=== PATIENT | male | born 1970 | race Caucasian/White ===

== ENCOUNTER 2019-01-11 06:15 | Inpatient (IN) ==
--- NOTE | 2019-01-05 10:35 | PAT Medication Instructions ---
Medication Instructions Date of Service January 05, 2019 Home Medications amlodipine 10 mg PO QPM aspirin [Aspir-81] 81 mg PO QPM cholecalciferol (vitamin D3) 2,000 unit PO QPM fexofenadine [Naila Allergy] 180 mg PO DAILY NEEDED lisinopril 20 mg PO QPM multivitamin 1 tab PO QPM simvastatin 20 mg PO PM DO NOT take the morning of surgery fexofenadine [Naila Allergy] 180 mg PO DAILY NEEDED Take morning of surgery NOTHING TO EAT OR DRINK AFTER MIDNIGHT Take evening before surgery amlodipine 10 mg PO QPM aspirin [Aspir-81] 81 mg PO QPM cholecalciferol (vitamin D3) 2,000 unit PO QPM lisinopril 20 mg PO QPM multivitamin 1 tab PO QPM simvastatin 20 mg PO PM Other Notes If you have any questions please call us at [phone] or [phone] or [phone] or [phone]
--- NOTE | 2019-01-05 12:55 | Anesthesiology Consultation ---
Date of Service January 05, 2019 Assessment & Plan (1) Encounter for pre-operative examination: Chart Review Chart Review: Acceptable Risk for Surgery and Patient seen in Pre Admission Testing Consults Requested medical (Dr. Kevin (01/07)) Patient was seen by PCPs office on 01/07. Per note, "he is deemed an acceptable risk for the planned surgery." Teaching & Discussion Pre-Anesthesia Teaching/Discussion Notes: Instructed NPO after midnight before surgery, except medications with 15 cc of water. Medication instructions provided according to the PAT guidelines. History Surgery Operation Date: 01/11/19 08:55 Proposed Procedures p Left Total Knee Arthroplasty - Taj Klein DO Height/Weight Height: 6 ft Weight: 118.7 kg Allergies Allergy/AdvReac Type Severity Reaction Status Date / Time acetaminophen [From Tylenol] Allergy Unknown THROAT Verified 01/03/19 10:30 SWELLS UP Medications Home Medications Medication Instructions Recorded Confirmed Last Taken amlodipine 10 mg PO QPM 01/03/19 01/03/19 Unknown aspirin [Aspir-81] 81 mg PO QPM 01/03/19 01/03/19 Unknown cholecalciferol (vitamin D3) 2,000 unit PO QPM 01/03/19 01/03/19 Unknown [Vitamin D3] fexofenadine [Naila Allergy] 180 mg PO DAILY PRN 01/03/19 01/03/19 Unknown lisinopril 20 mg PO QPM 01/03/19 01/03/19 Unknown multivitamin 1 tab PO QPM 01/03/19 01/03/19 Unknown simvastatin 20 mg PO PM 01/03/19 01/03/19 Unknown Past Medical History Medical History Factor 5 Leiden mutation, heterozygous F/U PCP Hyperlipidemia Hypertension Osteoarthritis Sleep apnea CPAP Past Family History Family History Mother Family history of diabetes mellitus Past Surgical History Surgical History History of arthroscopy R/L KNEES. Left knee in 2014 History of arthroscopy of left shoulder x1 History of arthroscopy of right shoulder x2 Past Anesthesia History No Hx of Anesthesia Complications and No Family Hx of Anesthesia Complications History of PONV No Motion Sickness Screening History of Motion Sickness: Yes (Only if he reads) Social History Smoking Status: Never smoker Do You Dip or Chew Tobacco: No (QUIT 5-6 YRS AGO) Hx Alcohol Use: Yes Alcohol type: beer and wine alcohol intake frequency: a few times a week Hx Substance Use: No substance use type: does not use Exercise / Class Metabolic Activity II 4-5 Yardwork/Stairs/Walk up hill (Limited currently due to knee pain. Able to climb a FOS. Denies CP or SOB. ) Review of Systems Patient denies chest pain, shortness of breath, dyspnea on exertion, reflux, cough, wheezing, palpitations. +joint pain (both knees) Physical Exam Vital Signs BP: 126/74 P: 82 R: 18 T: 97.8 SPO2: 97% on RA ENMT Thyromental Distance: < 3.5 Finger Breadths (3) Mallampati Class: II Neck normal visual inspection, trachea midline and + facial hair (Advised); neck extension not limited Respiratory normal respiratory effort Auscultation: lungs clear to auscultation bilaterally Cardiovascular Rate/Rhythm: regular rate and regular rhythm Heart Sounds: no murmur Vessels: no carotid bruit Neurologic moves all extremities Psychiatric Orientation: alert and oriented x 3 Testing Electrocardiogram Date: 01/05/19 Findings: + NSR @ (74) Chest X-Ray Date: 01/05/19 Findings: + NAD Echocardiogram Date: 12/25/17 EF: 60% LV Function: normal RWMA: + none Valvular Disease: + no significant valvular disease Laboratory Results 01/05/19 13:13 01/05/19 13:13 Blood Type A Positive 01/05/19 13:13 Antibody Screen NEGATIVE 01/05/19 13:13 PT 10.5 Seconds (9.0-12.0) 01/05/19 13:13 INR 1.0 (0.9-1.1) 01/05/19 13:13 APTT 25.4 Seconds (21.0-31.0) 01/05/19 13:13 Hemoglobin A1c 5.3 % (4.5-5.6) 01/05/19 13:13 Urine Color Yellow 01/05/19 Unknown Urine Appearance Clear (Clear) 01/05/19 Unknown Urine pH 5.5 (4.5-7.5) 01/05/19 Unknown Ur Specific [place] 1.008 (1.000-1.030) 01/05/19 Unknown Urine Protein Negative (Negative) 01/05/19 Unknown Urine Glucose (UA) Negative (Negative) 01/05/19 Unknown Urine Ketones Negative (Negative) 01/05/19 Unknown Urine Nitrite Negative (Negative) 01/05/19 Unknown Ur Leukocyte Esterase Negative (Negative) 01/05/19 Unknown 01/05/19 Unknown Urine Culture - Final Urine,Clean Catch No growth - less than 1,000 colonies/mL.
--- NOTE | 2019-01-05 13:39 | XRay Report ---
XR chest Pre-admission PA/Lat CLINICAL HISTORY: pat preoperative evaluation COMPARISON STUDY: No previous studies for comparison. FINDINGS: The bones soft tissues and hemidiaphragms are normal. The cardiomediastinal silhouette is n ormal. The lungs are clear. The pulmonary vasculature is normal. IMPRESSION: Negative chest. The above report was generated using voice recognition software. It may contain grammatical, syntax or spelling errors. Electronically signed by: Mike Smith M.D. 01/05/2019 1:38 PM
--- NOTE | 2019-01-05 13:52 | History & Physical Report ---
Date of Service January 05, 2019 Date of Surgery: 01-11-19 Assessment & Plan (1) Primary osteoarthritis of left knee: Patient has continued pain in his left knee despite previous visco injections as well as cortisone injections. He underwent left knee arthroscopy, partial menisectomy and chondroplasty in 2014. he has since failed conservative measures, xrays showing advancing DJD of his medial compartment and patellofemoral joint. Risks and benefits of procedure discussed in detail today , patient would like to proceed with a left total knee replacement @ [facility] as scheduled. will obtain medical clearance prior to surgery as well as obtain PATs at [facility]. Will place on ASA 81mg po bid x 1 month post op, f/u 2 weeks post op for routine post-operative care and xray, sooner if having any problems. will make arrangements for HHPT at the time of discharge. History of Present Illness Chief Complaint: left knee pain Primary Care Provider: Krista Kevin DO Mr Howard is a 48 year old male who is here for a follow up of knee pain, presents for pre-op evaluation prior to left total knee replacement at [facility] on . He states that the symptoms have been chronic non-traumatic. The symptoms occur constantly with intermittent worsening. Currently the patient states that the symptoms are moderate in severity. The pain is described as aching and discomforting. The symptoms occur continuously. He states the pain now affects his ADLs including walking, standing and using stairs. He has tried and failed conservative measures including previous cortisone, visco injection, PT, previous knee arthroscopy as well as has used a brace in the past. currently pain 4/10, worst is 8/10. Allergies Allergy/AdvReac Type Severity Reaction Status Date / Time acetaminophen [From Tylenol] Allergy Unknown THROAT Verified 01/03/19 10:30 SWELLS UP Home Medications Home Medications Medication Instructions Recorded Confirmed Type amlodipine 10 mg PO QPM 01/03/19 01/03/19 History aspirin [Aspir-81] 81 mg PO QPM 01/03/19 01/03/19 History cholecalciferol (vitamin D3) 2,000 unit PO QPM 01/03/19 01/03/19 History [Vitamin D3] fexofenadine [Naila Allergy] 180 mg PO DAILY PRN 01/03/19 01/03/19 History lisinopril 20 mg PO QPM 01/03/19 01/03/19 History multivitamin 1 tab PO QPM 01/03/19 01/03/19 History simvastatin 20 mg PO PM 01/03/19 01/03/19 History Past Med/Surg History Medical History Factor 5 Leiden mutation, heterozygous F/U PCP Hyperlipidemia Hypertension Osteoarthritis Sleep apnea CPAP Surgical History History of arthroscopy R/L KNEES. Left knee in 2014 History of arthroscopy of left shoulder x1 History of arthroscopy of right shoulder x2 Family History Mother Family history of diabetes mellitus Social History Current Living Situation: Spouse Other Information That Helps Us Care for You: No Feels Safe at Home: Yes Safety Concerns: Feels Safe At This Time Smoking Status: Never smoker Do You Dip or Chew Tobacco: No (QUIT 5-6 YRS AGO) Hx Alcohol Use: Yes Alcohol type: beer and wine Alcohol Intake Frequency: a few times a week Hx Substance Use: No Beliefs That Will Affect Care: None Preferred Language: Czech Communication Ability: Effective 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 Review of Systems All systems reviewed & are unremarkable except as noted in HPI & below Constitutional: no fever, no chills, no sweats and no body aches Eyes: no blind spots and no diplopia Respiratory: no cough, no dyspnea and no dyspnea on exertion Cardiovascular: no chest pain, no dyspnea, no orthopnea and no lightheadedness Gastrointestinal: no nausea and no vomiting Musculoskeletal: as per Subjective / HPI Integumentary: no rash and no lesions Physical Exam 2 Vital Signs (Past 24 Hours): Ht: 6 Ft Wt: 118.7 kg BP: 140/88 Pulse: 82 Resp: 18 Constitutional: WD/WN, vitals as above + well hydrated; no acute distress Respiratory: normal respiratory effort, lungs clear to auscultation no respiratory distress and does not use accessory muscles Cardiovascular: RRR, no murmur, no edema Gastrointestinal (Abdomen): normal bowel sounds, soft, nontender, no hepatosplenomegaly Musculoskeletal: Left Knee Physical Exam- Patient ambulates with a limp, He has overall varus alignment, There is no atrophy, erythema, warmth or ecchymosis noted, mild suprapatellar effusion, diffuse tenderness to his knee but greatest over medial compartment. negative patellar apprehension , mild crepitation with motion, judith's and posterior drawer negative, Que's - lateral positive, Que's - medial positive, Anterior drawer Negative, Valgus stress Negative, Varus stress Negative, no Extensor lag, Pain with Active range of motion, Active Range of motion 0/3/110, PROM 0/3/120. No pain with active/passive ROM of ankle. Lower Extremity Strength normal. Lower Extremity Neuro-vascular is normal Skin: no rashes, warm and dry Results & Data Diagnostic Findings 4 views left knee dated 12/30/18 showing degenerative changes greatest medial compartment and patellofemoral joint. findings showing decreased joint space and osteophyte formation. overall has varus alignment. no acute findings noted, no loose bodies.
[2019-01-05 14:59] LABS: Appearance Urine Clear (Clear); Bilirubin Urine Negative (Negative); Color Urine Yellow; Glucose Urine UA Negative (Negative); Ketones Urine Negative (Negative); Leukocyte Esterase Urine Negative (Negative); Nitrite Urine Negative (Negative); Protein Urine Negative (Negative); Specific Gravity Urine 1.008 (1.000-1.030); Urobilinogen Urine Negative (Negative); pH Urine 5.5 (4.5-7.5)
[2019-01-05 15:03] LABS: Basophils # (auto) 0.03 K/uL (0-0.2); Basophils % (auto) 0.4 %; Eosinophils # (auto) 0.23 K/uL (0-0.5); Hematocrit (blood only) 40.7 % (42-52); Hemoglobin 13.9 g/dL (14.0-18.0); Immature Granulocytes # (auto) 0.04 K/uL (0.00-0.02); Immature Granulocytes % (auto) 0.5 %; Lymphocytes # (auto) 2.15 K/uL (1.2-3.4); Lymphocytes % (auto) 28.4 %; Mean Corpuscular Hgb Conc 34.2 g/dL (32-36); Mean Corpuscular Volume 90.8 fL (80-100); Mean Platelet Volume 10.5 fL (7.4-10.4); Monocytes # (auto) 0.63 K/uL (0.11-0.59); Monocytes % (auto) 8.3 %; Neutrophils % (auto) 59.4 %; Platelet Count 252 K/uL (130-400); RDW Coefficient of Variation 12.8 % (11.5-14.5); RDW Standard Deviation 42.4 fL (36.4-46.3); Red Blood Count 4.48 M/uL (4.7-6.1); White Blood Count 7.58 K/uL (4.8-10.8)
[2019-01-05 15:04] LABS: Partial Thromboplastin Time 25.4 Seconds (21.0-31.0); Prothrombin Time 10.5 Seconds (9.0-12.0)
[2019-01-05 15:05] LABS: BUN Creatinine Ratio 11.9 (10-20); Calcium 8.6 mg/dl (8.5-10.1); Est GFR (African American) 95.5; Est GFR (Non-African American) 82.4; Potassium 3.6 mmol/L (3.5-5.1)
[2019-01-06 06:10] LABS: Estimated Average Glucose 105 mg/dl
[~2019-01-11 06:15] MED LIST: ACETAMINOPHEN 500 MG TAB PO SCH; CEFAZOLIN 1000MG 1,000 MG/7.5 ML SYR IV SCH; CEFAZOLIN 2000MG 2,000 MG/15 ML SYR IV SCH; CeleBREX 200 MG CAP PO SCH; FAMOTIDINE 20 MG TAB PO SCH; GABAPENTIN 300 MG x 2 PO SCH; METOCLOPRAMIDE HCL 10 MG TABLET PO SCH; ROPIVACAINE 0.5% HCL/PF 150 MG, BUPIVACAINE 0.5% MPF 30 ML, EPINEPHrine 30MG/30ML (OR U... INFIL SCH; TRANEXAMIC ACID 1,000 MG **IV Pre-op IV SCH; dexAMETHasone 4 MG TAB PO SCH
[2019-01-11] MEDS ORDERED: PROPOFOL IV EMULSION 10 MG/ML 20 ML VIAL IV ONE (06:29)
[2019-01-11] MEDS ORDERED: MIDAZOLAM HCL 1 MG/ML 2ML VIAL ONE (06:30)
[2019-01-11] MEDS ORDERED: TRANEXAMIC ACID 1,000 MG **IV Intra-op IV SCH (06:30)
[2019-01-11] MEDS ORDERED: fentaNYL citrate 100 MCG/2 ML VIAL IV PRN (06:41)
[2019-01-11] MEDS ORDERED: ePHEDrine sulfate 50 MG/ML AMP IV PRN (06:41)
[2019-01-11] MEDS ORDERED: ONDANSETRON INJ 2 MG/ML 2 ML VIAL IV PRN ×2 (06:41→12:31)
[2019-01-11] MEDS ORDERED: ATROPINE SULFATE 0.1 MG/ML 10ML SYR IV PRN (06:41)
[2019-01-11] MEDS: LR 500ML BOLUS, THEN 15ML/HR IV SCH ×2 (06:50→16:00)
[2019-01-11] MEDS ORDERED: POVIDONE-IODINE OP SOLN 30 ML BTL ONE (07:02)
[2019-01-11] MEDS ORDERED: ORTHO JOINT ANESTHETIC ONE (07:02)
[2019-01-11] MEDS ORDERED: BACITRACIN INJ 50,000 UNIT VIAL ONE (07:03)
[2019-01-11] MEDS ORDERED: BUPIVACAINE 0.5 % 5 MG/1 ML PF 10ML VIAL ONE (07:05)
[2019-01-11] MEDS ORDERED: ROPIVACAINE 0.5% 5 MG/ML 30 ML VIAL ONE (07:06)
--- NOTE | 2019-01-11 07:23 | History & Physical Bridge Note ---
Date of Service January 11, 2019 History & Physical Bridge Note I have examined the patient, reviewed the History & Physical and in the interval since the performance of the History & Physical I have noted the following changes of clinical significance: no changes noted
[2019-01-11] MEDS ORDERED: ONDANSETRON INJ 2 MG/ML 2 ML VIAL ONE (09:40)
[2019-01-11] MEDS ORDERED: DEXAMETHASONE SOD INJ 4 MG/ML VIAL ONE (09:40)
--- NOTE | 2019-01-11 10:16 | Operative Report ---
Post Operative Report Pre & Post Diagnosis Operation Date: 01/11/19 08:55 Pre-Op Diagnosis: LEFT KNEE OSTEOARTHRITIS Post-Op Diagnosis: LEFT KNEE OSTEOARTHRITIS Procedure Operation Date: 01/11/19 08:55 Actual Procedures p Left Total Knee Arthroplasty(Left) utilizing [employer] non-bloc journey to size 6 femur 6 tibia 9 poly-ethylene 35 oval patella- Taj Klein DO Surgeon Taj Klein DO Passenger [employer] [facility] Estimated Blood Loss 5 Findings Consistent with Post-Op Diagnosis Patient presents with severe end-stage tricompartmental degenerative joint disease left knee no response to conservative management intraoperative findings include subchondral sclerosis cystic changes marginal osteophytes pseudo-ligamentous laxity large effusion with [id number] eburnated bone patient's been no response to conservative management with physical therapy anti -inflammatories relative rest activity modification corticosteroid injections presents for left total knee arthroplasty Specimens Bone and cartilage Drains Medium bore Hemovac Anesthesia Type Spinal MAC Complications none Disposition Accompanied Patient To Recovery: No Disposition: Recovery Room Indications Patient presents with severe end-stage DJD left knee no response to conservative therapy for left total knee arthroplasty patient had previous corticosteroid injections Visco supplementations relative rest bracing and activity modification failed physical therapy patient presents with the above intraoperative findings noted subchondral sclerosis marginal osteophytes bone to bone eburnated bone Description of Procedure After proper prepping and draping of the left lower extremity anterior midline incision was made over the region of the extensor extensor mechanism after meticulous hemostasis was obtained and maintained in subcutaneous tissues a medial parapatellar incision was made The patella was subluxed lateralward the medial lateral gutter were cleaned from any hypertrophic synovitis and scar tissue of the distal femoral block was placed and the distal femoral osteotomy cut was made subsequently the chamfers anterior and posterior osteotomy cuts were made utilizing the 4-in-1 block the tibia was subsequently subluxed anteriorward medial and ateral meniscal remnants were excised in their entirety remnants of the anterior and posterior cruciate ligaments were excised in their entirety excellent exposure of the proximal tibia was obtained the tibial osteotomy guide was placed on the proximal tibial osteotomy cut was made once again the knee was irrigated with copious amounts of sterile saline solution the patella was subsequently everted lateralward thickened scar tissue around the patella was removed the patella was subsequently cut utilizing a freehand technique and was drilled prepared for final preparation and placement of patella socially flexion-extension gaps were checked and the equal and symmetric trials were placed to the appropriate femoral and tibial trials with poly-spacer being placed for equal flexion and extension gaps and full range of motion including extension to 0 and flexion to 140� the trial components after having been taken to recovery range of motion was subsequently removed meticulous hemostasis was obtained and maintained subsequently a knee block injection of joint cocktail including ropivacaine 0.5% 150 mg. Bupivacaine 0.5 % epinephrine 1-200,030 mL's toradol 30 mg dexamethasone 4 mg ketamine 10 mg clonidine 100 micrograms normal saline solution 30 mg was infiltrated into the soft tissues of the posterior knee medial lateral gutters and periosteal synovium special attention was paid to protect neurovascular structures at all times subsequently trial components having been removed the knee was irrigated with sterile saline solution. debris was removed the proximal tibia was subsequently prepared and was made ready for the placement of the tibial component tibial component was also cemented and tamped into position the femoral component was subsequently placed and cemented in the position the patellar component was subsequently cemented in position because hemostasis once again obtained and maintained wound having been thoroughly irrigated with debridement and debridement lavage was performed as well as a medial parapatellar incision closed with #1 Vicryl in interrupted fashion subcutaneous was closed with #2 Vicryl skin was closed with skin clips. PA-C was necessary for prepping and drapping as well as wound closure of deep fascia Sub cutaneous tissue and skin and was necessary for the case. A sterile compressive dressing was placed patient was taken to recovery in stable condition of report dictated by Ernie I attest to the content of the Intraoperative Record and any orders documented therein. Any exceptions are noted below. I attest to the content of the Intraoperative Record and any orders documented therein. Any exceptions are noted below.
--- NOTE | 2019-01-11 11:43 | XRay Report ---
XR knee LT 2V routine CLINICAL HISTORY: Surgical Post Op COMPARISON: None. DISCUSSION: There are postsurgical changes of a total left knee arthroplasty and patellar resurfacing . The femoral tibial components appear well seated. There are overlying surgical drains. There is air within soft tissues consistent with recent surgery. IMPRESSION: Postsurgical changes of a total left knee arthroplasty. Electronically signed by: Phong Bell M.D. 01/11/2019 11:42 AM
--- NOTE | 2019-01-11 12:06 | Anesthesiology Progress Note ---
Date of Service January 11, 2019 Anesthesia Post Procedure Vital Signs Vital Signs: Temp Pulse Pulse Resp BP Pulse Ox 01/11/19 11:45 71 17 111/61 97 01/11/19 11:35 36.4 C L 71 16 111/61 97 01/11/19 11:25 69 14 118/64 95 01/11/19 11:15 74 17 114/60 89 L 01/11/19 11:05 73 21 110/61 93 01/11/19 10:57 36.0 C L 75 14 122/60 95 01/11/19 06:36 36.7 C 68 18 145/77 H 98 Notes Mental Status: alert / awake / arousable Patient Amnestic to Procedure: Yes Nausea / Vomiting: adequately controlled Pain: adequately controlled Airway Patency, RR, SpO2: stable & adequate BP & HR: stable & adequate Hydration State: stable & adequate Neuraxial Anesthesia: was administered and sensory block is resolving Anesthetic Complications: no major complications apparent and Pt Satisfied with anesthetic care
[2019-01-11] MEDS ORDERED: FEXOFENADINE HCL 180 MG TAB PO PRN (12:31)
[2019-01-11] MEDS ORDERED: METOCLOPRAMIDE HCL INJ 5 MG/ML 2 ML VIAL IV PRN (12:31)
[2019-01-11] MEDS ORDERED: NALOXONE HCL 0.4 MG/1 ML VIAL/CARP IV PRN (12:31)
[2019-01-11] MEDS ORDERED: BISACODYL 10 MG SUPP PR PRN (12:31)
[2019-01-11] MEDS ORDERED: MAGNESIUM HYDROXIDE SUSP 30 ML UDC PO PRN (12:31)
[2019-01-11] MEDS: SODIUM CHLORIDE 0.9% 1000ML 1,000 ML IV SCH ×2 (15:09→23:24)
[2019-01-11] MEDS: CEFAZOLIN 2000MG 2,000 MG/15 ML SYR IV SCH (17:53)
[2019-01-11] MEDS: LISINOPRIL 20 MG TAB PO SCH (20:14)
[2019-01-11] MEDS: CeleBREX 200 MG CAP PO SCH (20:15)
[2019-01-11] MEDS: SENNA 8.6 MG TAB PO SCH (20:15)
[2019-01-11] MEDS: SIMVASTATIN 20 MG TAB PO SCH (20:15)
[2019-01-11] MEDS: AMLODIPINE BESYLATE 5 MG TAB PO SCH (20:15)
[2019-01-11] MEDS: CHOLECALCIFEROL 1,000 UNITS TAB PO SCH (20:15)
[2019-01-11] MEDS: ASPIRIN 81 MG ECTAB PO SCH (20:15)
[2019-01-11] MEDS: DOCUSATE SODIUM 100 MG CAP PO SCH (20:16)
[2019-01-12] MEDS: CEFAZOLIN 2000MG 2,000 MG/15 ML SYR IV SCH (01:18)
[2019-01-12 06:44] LABS: Hemoglobin 11.7 g/dL (14.0-18.0); Mean Corpuscular Hgb Conc 34.4 g/dL (32-36); Mean Corpuscular Volume 89.7 fL (80-100); Mean Platelet Volume 10.6 fL (7.4-10.4); Platelet Count 243 K/uL (130-400); RDW Coefficient of Variation 12.7 % (11.5-14.5); Red Blood Count 3.79 M/uL (4.7-6.1); White Blood Count 21.31 K/uL (4.8-10.8)
[2019-01-12 07:16] LABS: BUN Creatinine Ratio 15.8 (10-20); Calcium 8.5 mg/dl (8.5-10.1); Creatinine Clr Calc Pharmacy 122.5 ml/min; Est GFR (African American) 107.7; Potassium 3.6 mmol/L (3.5-5.1)
[2019-01-12] MEDS: OXYCODONE HCL IR 5 MG TAB (IMMEDIATE RELEASE) PO PRN ×4 (07:35→20:19)
[2019-01-12] MEDS: CeleBREX 200 MG CAP PO SCH ×2 (08:41→20:20)
[2019-01-12] MEDS: MULTIVITAMIN TAB PO SCH (08:41)
[2019-01-12] MEDS: ASPIRIN 81 MG ECTAB PO SCH ×2 (08:41→20:20)
[2019-01-12] MEDS: DOCUSATE SODIUM 100 MG CAP PO SCH ×2 (08:46→20:24)
--- NOTE | 2019-01-12 09:50 | Orthopedic Progress Note ---
Date of Service January 12, 2019 Assessment & Plan (1) Status post total left knee replacement: POD #1 s/p Left TKA pt/ot dvt proph with JAMES/SCD/ASA plan for d/c home with home health PT with [facility], likely . will keep overnight to monitor hemovac. Subjective POD #1 s/p Left TKA denies CP/SOB. denies fever/chills. pain 03/02 Physical Exam 2 Vital Signs (Past 24 Hours): Last Vital Signs Temp 37 C 01/12/19 07:24 Pulse 71 01/12/19 07:24 Resp 16 01/12/19 07:24 BP 114/63 01/12/19 07:24 Pulse Ox 96 01/12/19 07:24 Constitutional: WD/WN, vitals as above no acute distress Musculoskeletal: Left Leg: NVDI, calf SNT, negative maria del carmen sign. DP palpable, able to wiggle toes/ankle movement without difficulty. dressing clean dry and intact. Vital Signs Temp 37 C 01/12/19 07:24 Pulse 71 01/12/19 07:24 Resp 16 01/12/19 07:24 BP 114/63 01/12/19 07:24 Pulse Ox 96 01/12/19 07:24 Intake & Output 01/11/19 01/12/19 01/12/19 18:59 06:59 18:59 Intake Total 2288.35 / 2288.35 821.667 / 821.667 Output Total 1570 / 1570 1050 / 1050 Balance 718.35 / 718.35 -228.333 / -228.33 3 Weight 116.392 kg Intake: IV 913.35 / 913.35 821.667 / 821.667 Naropin 0.5% 1 50 mg/30 ml Vial 93.35 / 93.35 150 mg Marcain e 0.5% Mpf 30 ml Adrenalin 30Mg /30Ml (or Use Only) 0.15 mg Toradol (or Use) 30 mg Decadron 4 mg Ketalar Steri-Vial (or Use) 10 mg cloNIDine HCl 100 MCG In Nss 30 ml @ 0 mls/hr INFIL TODAY@0600 [facility] Rx#:[id number] Lr 1,000 ml @ 999 mls/hr IV . 600.0 / 600.0 Q1H1M [facility] Rx#: [id number] Nss 1000ML 1,0 00 ml @ 100 mls/ 821.667 / 821.667 hr IV .Q10H SC H Rx#:[id number] Cyklokapron 1, 000 mg In Sodium 220 / 220 Chloride 100 m l @ 660 mls/hr IV 0630 [facility] Rx#:[id number] IV Perioperative 600 / 600 Oral 775 / 775 Output: Urine 1200 / 1200 300 / 300 Estimated Blood Loss 5 / 5 Drain Output 365 / 365 750 / 750 Left Knee Hemo vac 365 / 365 750 / 750 Lab Results 01/05/19 01/05/19 01/05/19 Range/Units 13:13 13:13 13:13 WBC 7.58 (4.8-10.8) K/uL RBC 4.48 L (4.7-6.1) M/uL Hgb 13.9 L (14.0-18.0) g/dL Hct 40.7 L (42-52) % MCV 90.8 (80-100) fL MCH 31.0 (25-34) pg MCHC 34.2 (32-36) g/dL RDW Std Deviation 42.4 (36.4-46.3) fL RDW Coeff of Lewis 12.8 (11.5-14.5) % Plt Count 252 (130-400) K/uL MPV 10.5 H (7.4-10.4) fL Immature Gran % (A uto) 0.5 % Neut % (Auto) 59.4 % Lymph % (Auto) 28.4 % [place] % (Auto) 8.3 % Eos % (Auto) 3.0 % Baso % (Auto) 0.4 % Immature Gran # (A uto) 0.04 H (0.00-0.02) K/uL Neut # (Auto) 4.50 (1.4-6.5) K/uL Lymph # (Auto) 2.15 (1.2-3.4) K/uL [place] # (Auto) 0.63 H (0.11-0.59) K/uL Eos # (Auto) 0.23 (0-0.5) K/uL Baso # (Auto) 0.03 (0-0.2) K/uL PT 10.5 (9.0-12.0) [place] ds INR 1.0 (0.9-1.1) APTT 25.4 (21.0-31.0) [place] nds PTT Ratio 1.0 Sodium 142 (136-145) mmol/L Potassium 3.6 (3.5-5.1) mmol/L Chloride 107 (98-107) mmol/L Carbon Dioxide 28 (21-32) mmol/L Anion Gap 7.0 (3-11) BUN 13 (7-18) mg/dl Creatinine 1.05 (0.6-1.4) mg/dl Est Cr Clr Drug Do sing 112.0 ml/min Est GFR ( A trudy) 95.5 Est GFR (Non-Af Am er) 82.4 BUN/Creatinine Rat io 11.9 (10-20) Glucose 152 H (70-99) mg/dl Estimat Average Gl ucose mg/dl Hemoglobin A1c (4.5-5.6) % Calcium 8.6 (8.5-10.1) mg/dl Albumin 4.0 (3.4-5.0) gm/dl Urine Color Urine Appearance (Clear) Urine pH (4.5-7.5) Ur Specific Gravit y (1.000-1.030) Urine Protein (Negative) Urine Glucose (UA) (Negative) Urine Ketones (Negative) Urine Blood (Negative) Urine Nitrite (Negative) Urine Bilirubin (Negative) Urine Urobilinogen (Negative) Ur Leukocyte Priscilla ase (Negative) Blood Type Antibody Screen 01/05/19 01/05/19 01/05/19 Range/Units 13:13 13:13 Unknown WBC (4.8-10.8) K/uL RBC (4.7-6.1) M/uL Hgb (14.0-18.0) g/dL Hct (42-52) % MCV (80-100) fL MCH (25-34) pg MCHC (32-36) g/dL RDW Std Deviation (36.4-46.3) fL RDW Coeff of Lewis (11.5-14.5) % Plt Count (130-400) K/uL MPV (7.4-10.4) fL Immature Gran % (A uto) % Neut % (Auto) % Lymph % (Auto) % [place] % (Auto) % Eos % (Auto) % Baso % (Auto) % Immature Gran # (A uto) (0.00-0.02) K/uL Neut # (Auto) (1.4-6.5) K/uL Lymph # (Auto) (1.2-3.4) K/uL [place] # (Auto) (0.11-0.59) K/uL Eos # (Auto) (0-0.5) K/uL Baso # (Auto) (0-0.2) K/uL PT (9.0-12.0) [place] ds INR (0.9-1.1) APTT (21.0-31.0) Sec[place] nds PTT Ratio Sodium (136-145) mmol/L Potassium (3.5-5.1) mmol/L Chloride (98-107) mmol/L Carbon Dioxide (21-32) mmol/L Anion Gap (3-11) BUN (7-18) mg/dl Creatinine (0.6-1.4) mg/dl Est Cr Clr Drug Do sing ml/min Est GFR ( A turdy) Est GFR (Non-Af Am er) BUN/Creatinine Rat io (10-20) Glucose (70-99) mg/dl Estimat Average Gl ucose 105 mg/dl Hemoglobin A1c 5.3 (4.5-5.6) % Calcium (8.5-10.1) mg/dl Albumin (3.4-5.0) gm/dl Urine Color Yellow Urine Appearance Clear (Clear) Urine pH 5.5 (4.5-7.5) Ur Specific Gravit y 1.008 (1.000-1.030) Urine Protein Negative (Negative) Urine Glucose (UA) Negative (Negative) Urine Ketones Negative (Negative) Urine Blood Negative (Negative) Urine Nitrite Negative (Negative) Urine Bilirubin Negative (Negative) Urine Urobilinogen Negative (Negative) Ur Leukocyte Priscilla ase Negative (Negative) Blood Type A Positive Antibody Screen NEGATIVE 01/12/19 01/12/19 Range/Units 06:06 06:06 WBC 21.31 H (4.8-10.8) K/uL RBC 3.79 L (4.7-6.1) M/uL Hgb 11.7 L (14.0-18.0) g/dL Hct 34.0 L (42-52) % MCV 89.7 (80-100) fL MCH 30.9 (25-34) pg MCHC 34.4 (32-36) g/dL RDW Std Deviation 41.0 (36.4-46.3) fL RDW Coeff of Lewis 12.7 (11.5-14.5) % Plt Count 243 (130-400) K/uL MPV 10.6 H (7.4-10.4) fL Immature Gran % (A uto) % Neut % (Auto) % Lymph % (Auto) % [place] % (Auto) % Eos % (Auto) % Baso % (Auto) % Immature Gran # (A uto) (0.00-0.02) K/uL Neut # (Auto) (1.4-6.5) K/uL Lymph # (Auto) (1.2-3.4) K/uL [place] # (Auto) (0.11-0.59) K/uL Eos # (Auto) (0-0.5) K/uL Baso # (Auto) (0-0.2) K/uL PT (9.0-12.0) [place] ds INR (0.9-1.1) APTT (21.0-31.0) Sec[place] nds PTT Ratio Sodium 138 (136-145) mmol/L Potassium 3.6 (3.5-5.1) mmol/L Chloride 106 (98-107) mmol/L Carbon Dioxide 24 (21-32) mmol/L Anion Gap 8.0 (3-11) BUN 15 (7-18) mg/dl Creatinine 0.95 (0.6-1.4) mg/dl Est Cr Clr Drug Do sing 122.5 ml/min Est GFR ( A trudy) 107.7 Est GFR (Non-Af Am er) 93.0 BUN/Creatinine Rat io 15.8 (10-20) Glucose 114 H (70-99) mg/dl Estimat Average Gl ucose mg/dl Hemoglobin A1c (4.5-5.6) % Calcium 8.5 (8.5-10.1) mg/dl Albumin (3.4-5.0) gm/dl Urine Color Urine Appearance (Clear) Urine pH (4.5-7.5) Ur Specific Gravit y (1.000-1.030) Urine Protein (Negative) Urine Glucose (UA) (Negative) Urine Ketones (Negative) Urine Blood (Negative) Urine Nitrite (Negative) Urine Bilirubin (Negative) Urine Urobilinogen (Negative) Ur Leukocyte Priscilla ase (Negative) Blood Type Antibody Screen
--- NOTE | 2019-01-12 10:17 | Anesthesiology Progress Note ---
Date of Service January 12, 2019 Anesthesia Post Procedure Vital Signs Vital Signs: Temp Pulse Pulse Resp BP Pulse Ox 01/12/19 07:24 37 C 71 16 114/63 96 01/12/19 03:45 37.0 C 73 16 110/58 L 94 01/11/19 23:19 37.1 C 60 18 125/73 95 01/11/19 19:49 36.7 C 77 16 125/66 96 01/11/19 15:01 36.6 C 79 16 103/64 95 01/11/19 13:47 80 16 112/67 95 01/11/19 12:55 83 18 117/71 96 01/11/19 12:31 70 16 114/66 94 01/11/19 12:00 36.9 C 76 16 116/71 96 01/11/19 11:45 71 17 111/61 97 01/11/19 11:35 36.4 C L 71 16 111/61 97 01/11/19 11:25 69 14 118/64 95 01/11/19 11:15 74 17 114/60 89 L 01/11/19 11:05 73 21 110/61 93 01/11/19 10:57 36.0 C L 75 14 122/60 95 Pain Intensity Left Leg: Pain Intensity: 7 Notes Mental Status: alert / awake / arousable Nausea / Vomiting: adequately controlled Pain: adequately controlled Airway Patency, RR, SpO2: stable & adequate BP & HR: stable & adequate Hydration State: stable & adequate Neuraxial Anesthesia: was administered and sensory block resolved Anesthetic Complications: no major complications apparent and Pt Satisfied with anesthetic care
[2019-01-12] MEDS: HYDROmorphone INJ 0.5 MG/0.5 ML SYR IV PRN ×2 (17:15→22:41)
[2019-01-12] MEDS: SENNA 8.6 MG TAB PO SCH (20:19)
[2019-01-12] MEDS: SIMVASTATIN 20 MG TAB PO SCH (20:21)
[2019-01-12] MEDS: CHOLECALCIFEROL 1,000 UNITS TAB PO SCH (20:21)
[2019-01-12] MEDS: AMLODIPINE BESYLATE 5 MG TAB PO SCH (20:21)
[2019-01-12] MEDS: LISINOPRIL 20 MG TAB PO SCH (20:21)
[2019-01-13] MEDS: OXYCODONE HCL IR 5 MG TAB (IMMEDIATE RELEASE) PO PRN ×2 (06:34→10:28)
--- NOTE | 2019-01-13 07:01 | Orthopedic Progress Note ---
Date of Service January 13, 2019 Assessment & Plan (1) Status post total left knee replacement: POD #2 s/p Left TKA pt/ot dvt proph with JAMES/SCD/ASA plan for d/c home with home health PT with [facility], likely after PT today Subjective POD #2 s/p Left TKA denies CP/SOB. denies fever/chills. pain 5/10 Musculoskeletal: as per Subjective / HPI Physical Exam 2 Vital Signs (Past 24 Hours): Last Vital Signs Temp 37.0 C 01/13/19 06:20 Pulse 80 01/13/19 06:20 Resp 16 01/13/19 06:20 BP 133/82 01/13/19 06:20 Pulse Ox 94 01/13/19 06:20 Constitutional: WD/WN, vitals as above no acute distress Musculoskeletal: Left leg: NVDI, calf SNT, negative maria del carmen sign. DP palpable, able to wiggle toes/ankle movement without difficulty. incision clean dry and intact with prineo closure. expected post-operative bruising noted.
[2019-01-13] MEDS: MULTIVITAMIN TAB PO SCH (07:13)
[2019-01-13] MEDS: ASPIRIN 81 MG ECTAB PO SCH (07:13)
[2019-01-13] MEDS: CeleBREX 200 MG CAP PO SCH (07:13)
[2019-01-13] MEDS: DOCUSATE SODIUM 100 MG CAP PO SCH (07:14)
--- NOTE | 2019-01-16 03:59 | Discharge Summary ---
DISCHARGE DIAGNOSIS: Degenerative joint disease, left knee. SECONDARY DIAGNOSES: Factor V Leiden mutation, heterozygous; hyperlipidemia; hypertension; sleep apnea with CPAP use. CONSULTATIONS: None. COMPLICATIONS: None. PROCEDURES: Left total knee arthroplasty performed by Dr. Klein on 01/11/2019. BRIEF HISTORY: As dictated in the history and physical. HOSPITAL SUMMARY: The patient was admitted on the above-noted date and had the above- surgery performed, which he tolerated well. On the first postoperative day, the patient was remaining stable. Vital signs were stable. He is afebrile. He had no complaints. Pain was controlled. Dressings were intact and dry. Toes were mobile. Neurovascularly was intact. Calves were soft and nontender. Hemoglobin was 13.9 and he was started on physical therapy protocol and continued on DVT prophylaxis and pain management. By his second postoperative day, he continued to remain stable. Denied shortness of breath or chest pain. Pain was 5/10. Vital signs were stable. He was afebrile. Neurovascularly was intact. Calves were soft, nontender. Incision was clean, dry and intact with Prineo closure. He was progressing well with his physical therapy and remaining stable and it was felt he could be discharged to home on 01/13/2019. For further review, please see chart. LABORATORY AND X-RAY DATA: As per chart. DISCHARGE INSTRUCTIONS: The patient was discharged to home in satisfactory condition on 01/13/2019. DIET: Regular. ACTIVITY: Weightbearing as tolerated to left lower extremity with walker. Follow TK instruction sheets and special care instructions as noted. Follow up with Dr. Klein in 2 weeks. The patient is to call for appointment if one has not been made for you. DISCHARGE MEDICATIONS: Aspirin 81 mg p.o. b.i.d., cefadroxil 500 mg p.o. b.i.d., Celebrex 200 mg p.o. b.i.d., Colace 100 mg p.o. b.i.d., and oxycodone 5-10 mg p.o. q. 4 hours p.r.n. Resume home meds as listed. Stop taking previous dosage of aspirin.
== END 2019-01-13 11:25 | disposition home health service (06) | DRG 470 ==
LOC: ASU 06:15 → 3E 12:03
DX: I10 Essential (primary) hypertension; Z79.82 Long term (current) use of aspirin; M17.12 Unilateral primary osteoarthritis, left knee; Z83.3 Family history of diabetes mellitus; E78.5 Hyperlipidemia, unspecified; D68.2 Hereditary deficiency of other clotting factors; G47.30 Sleep apnea, unspecified